=== PATIENT | female | born 1970 | race Caucasian/White ===

== ENCOUNTER 2025-08-10 11:01 | Emergency (ER) | payer OTHER ==
[~2025-08-10] VITALS: Ht 165.1 cm; Wt 105.4 kg
[~2025-08-10 11:01] MED LIST: LANS15CA37; TOPI50TA32
[2025-08-10 11:16] VITALS: PULSE 80; RESP 30; TEMP 97.6; O2SAT 100
--- NOTE | 2025-08-10 11:22 | ED.PDOC ---
History of Present Illness HPI Comments 55-year-old female presents to the ER with spouse and a prior medical history of seizures, hiatal hernia in the chief complaint of seizures. Spouse reports that the patient has been having more frequent seizures for the past week and a half with since Saturday of 07/25/2025. Spouse states that the patients seizure would usually last 10 minutes but has been recently been sec in today had three tonic- clonic seizures. Patient notes on having headache which is a 12/10 on the pain scale. Spouse notes that the patient has also been complaining of chest pain yesterday and assumes that it might be related to the recent seizures. Denies any other symptoms at this time. Denies chills, fever, N/V/D, SOB. No other associated symptoms, modifiers, recent injuries or sick contacts present at this time. Chief Complaint: Seizure Time Seen by MD: 11:15 Reviewed Notes: Nurses Notes, Medications, Allergies Allergies: Coded Allergies: Levetiracetam (Verified Allergy, Unknown, 08/10/25) Home Meds Reported Medications Lansoprazole (Prevacid) 15 Mg Cap 05/01/12 Topiramate (Topamax) 50 Mg Tab 05/01/12 Information Source: Patient, Spouse Mode of Arrival: Ambulatory Severity: Moderate Timing: Days Duration: Since onset, Days Prehospital treatment: None Past Medical History PAST MEDICAL HISTORY: Seizures Past Medical History (Other): Hiatal hernia Surgical History: Denies all surgeries Family History Family History: Reviewed,noncontributory to illness, Family hx of DM, Family hx of HTN Social History Smoker: Non-Smoker Alcohol: Occasionally Drugs: Marijuana Lives In: Home Constitutional: denies: chills, diaphoresis, fatigue, fever, malaise, sweats, weakness, others EENTM: denies: blurred vision, double vision, ear bleeding, ear discharge, ear drainage, ear pain, ear ringing, eye pain, eye redness, hearing loss, mouth pain, mouth swelling, nasal discharge, nose bleeding, nose congestion, nose pain, photophobia, tearing, throat pain, throat swelling, voice changes, others Respiratory: denies: cough, hemoptysis, orthopnea, SOB at rest, shortness of breath, SOB with excertion, stridor, wheezing, others Cardiovascular: reports: chest pain; denies: dizzy spells, diaphoresis, Dyspnea on exertion, edema, irregular heart beat, left arm pain, lightheadedness, palpitations, PND, syncope, others Gastrointestinal: denies: abdomen distended, abdominal pain, blood streaked bowels, constipated, diarrhea, dysphagia, difficulty swallowing, hematemesis, melena, nausea, poor appetite, poor fluid intake, rectal bleeding, rectal pain, vomiting, others Genitourinary: denies: abnormal vagina bleeding, burning, dyspareunia, dysuria, flank pain, frequency, hematuria, incontinence, pain, , vagina discharge, urgency, others Neurological: reports: headache, seizure; denies: dizziness, fainting, left feliberto ed numbness, left sided weakness, numbness, paresthesia, pre-existing deficit, right sided numbness, right sided weakness, speech problems, tingling, tremors, weakness, others Musculoskeletal: denies: back pain, gout, joint pain, joint swelling, muscle pain, muscle stiffness, neck pain, others Integumetry: denies: bruises, change in color, change in hair/nails, dryness, laceration, lesions, lumps, rash, wounds, others Allergic/Immunocompromised: denies: Difficulty Healing, Frequent Infections, Hives, Itching, others Hematologic/Lymphatic: denies: anemia, blood clots, easy bleeding, easy bruising, swollen glands, others Endocrine: denies: excessive hunger, excessive sweating, excessive thirst, excessive urination, flushing, intolerance to cold, intolerance to heat, unexplained weight gain, unexplained weight loss, others Psychiatric: denies: anxiety, bipolar disorder, depression, hopeless, panic disorder, schizophrenia, sleepless, suicidal, others All Other Systems: Reviewed and Negative Physical Exam General Appearance: Moderate Distress HEENT: Normal ENT Inspection, Pharynx Normal, TMs Normal Neck: Full Range of Motion, Non-Tender, Normal, Normal Inspection Respiratory: Chest Non-Tender, Lungs Clear, No Accessory Muscle Use, No Respiratory Distress, Normal Breath Sounds Cardiovascular: No Edema, No JVD, No Murmur, No Gallop, Normal Peripheral Pulses, Regular Rate/Rhythm Breast Exam: Deferred Gastrointestinal: No Organomegaly, Non Tender, No Pulsatile Mass, Normal Bowel Sounds, Soft Genitalia: Deferred Pelvic: Deferred Rectal: Deferred Extremities: No calf tenderness, Normal capillary refill, Normal inspection, N ormal range of motion, Non-tender, No pedal edema Musculoskeletal : Apperance: Normal 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 Was a procedure done?: No Differential Dx Considerations may include: Breakthrough seizure, syncope X-Ray, Labs, Meds, VS Vital Signs Date Time Temp Pulse Resp B/P (MAP) Pulse Ox O2 Delivery O2 Flow Rate FiO2 08/10/25 11:16 80 30 100 Room Air* 0 21 08/10/25 11:16 97.6 80 20 126/75 (92) 99 97.6 08/10/25 11:13 97.7 75 12 126/75 98 97.7 Lab Test 08/10/25 11:21 Range/Units White Blood Count 7.0 4.4-10.8 10^3/uL Red Blood Count 4.66 4.0-5.20 10^6/uL Hemoglobin 14.6 12.2-16.2 g/dL Hematocrit 42.6 36.0-46.0 % Mean Corpuscular Volume 91.5 80.0-100.0 fL Mean Corpuscular Hemoglobin 31.4 28.0-32.0 pg Mean Corpuscular Hemoglobin Concent 34.3 32.0-36.0 g/dL Red Cell Distribution Width 12.9 11.8-14.3 % Platelet Count 195 140-450 10^3/uL Mean Platelet Volume 10.0 6.9-10.8 fL Neutrophils (%) (Auto) 55.4 37.0-80.0 % Lymphocytes (%) (Auto) 37.3 10.0-50.0 % Monocytes (%) (Auto) 4.7 0.0-12.0 % Eosinophils (%) (Auto) 1.5 0.0-7.0 % Basophils (%) (Auto) 1.1 0.0-2.0 % Neutrophils # (Auto) 3.9 1.6-8.6 10 ^3/uL Lymphocytes # (Auto) 2.6 0.4-5.4 10 ^3/uL Monocytes # (Auto) 0.3 0-1.3 10 ^3/uL Eosinophils # (Auto) 0.1 0-0.8 10 ^3/uL Basophils # (Auto) 0.1 0-0.2 10 ^3/uL Nucleated Red Blood Cells 0.0 % Sodium Level 143 136-145 mmol/L Potassium Level 3.5 3.5-5.1 mmol/L Chloride Level 114 H 98-107 mmol/L Carbon Dioxide Level 20 20-31 mmol/L Anion Gap 9 5-15 Blood Urea Nitrogen 13 9-23 mg/dL Creatinine 0.93 0.550-1.02 mg/dL Glomerular Filtration Rate Calc 72 >90 mL/min BUN/Creatinine Ratio 14.0 10.0-20.0 Serum Glucose 99 74-106 mg/dL Calcium Level 9.6 8.7-10.4 mg/dL Current Medications Medications (Trade) Dose Ordered Sig/Tammy Route Start Time Stop Time Status Last Admin Sodium Chloride 1,000 ml @ 500 mls/hr Q2H ONCE IVB 08/10/25 11:15 08/10/25 13:14 08/10/25 11:32 Lorazepam (Ativan Inj) 1 mg ONCE ONCE IV 08/10/25 12:15 08/10/25 12:16 DC 08/10/25 12:11 IV Hep-Lock was established. The patient was given a normal saline bolus. The patient was given Ativan 1 mg IV push. The patient was given Ativan because she had another seizure here in the emergency department's The patient's CBC and chemistry panel are within normal limits. The CAT scan of the head is negative We called [facility] and they are going to transfer the patient. The authorization #[id number] We did speak with the family and they are in agreement with the management. Images Reviewed?: Images reviewed and evaluated by me Time of 1ST Reevaluation: 11:45 Reevaluation 1ST: Unchanged Patient Education/Counseling: Diagnosis, Treatment, Prognosis Family Education/Counseling: Diagnosis, Treatment, Prognosis SEPSIS Sepsis Screen Physician Orders Pulse Oximetry (08/10/25 11:13) Blood Pressure (08/10/25 11:13) Heplock Iv (08/10/25 11:13) Seizure Precautions (08/10/25 11:13) Sodium Chloride 0.9% (08/10/25 11:15) [place] (08/10/25 11:13) Electrocardigram (08/10/25 11:13) Head Without Contrast (08/10/25 11:13) Vital Signs Date Time Temp Pulse Resp B/P (MAP) Pulse Ox O2 Delivery O2 Flow Rate FiO2 08/10/25 11:16 80 30 100 Room Air* 0 21 08/10/25 11:16 97.6 80 20 126/75 (92) 99 97.6 08/10/25 11:13 97.7 75 12 126/75 98 97.7 Laboratory Tests Test 08/10/25 11:21 White Blood Count 7.0 10^3/uL (4.4-10.8) Medications Medications Dose Ordered Sig/Tammy Route Start Time Stop Time Status Last Admin Dose Admin Lorazepam 1 mg ONCE ONCE IV 08/10/25 12:15 08/10/25 12:16 DC 08/10/25 12:11 Sodium Chloride 1,000 ml @ 500 mls/hr Q2H ONCE IVB 08/10/25 11:15 08/10/25 13:14 08/10/25 11:32 Departure 1 Departure Time of Disposition: 12:48 Impression: Primary Impression: Breakthrough seizure Disposition: [facility] HOSPICE[facility]MEDICAL FACILITY Condition: Fair Critical Care Note Critical Care Time?: Yes (55 min-critical care time only) Stability Stability form required: Yes Stable for transfer: Intended for transfer (Health plan request transfer), To designated facility Heart Score Heart Score: Heart Score Response (Comments) Value History N/A 0 EKG N/A 0 Age N/A 0 Risk Factors N/A 0 Troponin N/A 0 Total 0 I personally scribed for MISA SCOTT MD ([email or web address]) on 08/10/25 at 11:22. Electronically submitted by Micky Vargas ([email or web address]). MISA SCOTT MD Aug 10, 2025 11:22
[2025-08-10] MEDS: SODIUM CHLORIDE 0.9% 1,000 ML IVB ONE (11:32)
[2025-08-10 11:36] LABS: Hematocrit 42.6 % (36.0-46.0); Hemoglobin 14.6 g/dL (12.2-16.2); Mean Corpuscular Hemoglobin 31.4 pg (28.0-32.0); Mean Corpuscular Volume 91.5 fL (80.0-100.0); Nucleated Red Blood Cells % 0.0 %
[2025-08-10 11:43] LABS: Potassium 3.5 mmol/L (3.5-5.1); Sodium 143 mmol/L (136-145)
[2025-08-10 11:44] LABS: Anion Gap 9 (5-15); Calcium 9.6 mg/dL (8.7-10.4)
[2025-08-10 11:48] LABS: Carbon Dioxide 20 mmol/L (20-31); Chloride 114 mmol/L (98-107)
[2025-08-10 11:49] LABS: BUN/Creatinine Ratio 14.0 (10.0-20.0); Blood Urea Nitrogen 13 mg/dL (9-23); Glucose 99 mg/dL (74-106)
[2025-08-10] MEDS: LORazepam 2MG/ML-1ML VIAL IV ONE (12:11)
[2025-08-10] MEDS: LORazepam 2MG/ML-1ML VIAL ONE (12:11)
--- NOTE | 2025-08-10 12:13 | DVH ---
EXAM: CT HEAD WITHOUT CONTRAST INDICATION: seizure TECHNIQUE: CT of the head without intravenous contrast. Radiation Dose : 1. Head: CT Dose: CTDI volume is 57.63 mGy. Dose-length product is 1135.76 mGy*cm The dose indicators for CT are the volume Computed Tomography (CT) Dose Index (CTDIvol) and the Dose Length Product (DLP), and are measured in units of mGy and mGy-cm, respectively. These indicators are not patient dose, but values generated from the CT scanner acquisition factors. The report includes radiation exposure data for exposures received during this examination. COMPARISON: None FINDINGS: There is no evidence of acute intracranial hemorrhage, extra-axial collection, mass effect, midline shift, herniation or hydrocephalus. The ventricles, sulci and cisterns are age appropriate. The hi-white differentiation is intact. The visualized paranasal sinuses and mastoid air cells are clear. The surrounding soft tissues and osseous structures are unremarkable. IMPRESSION: No acute intracranial abnormality. Radiation optimization: All CT scans at this facility use at least one of these dose optimization techniques: automated exposure control mA and/or kV adjustment per patient size (includes targeted exams where dose is matched to clinical indication) or iterative reconstruction.
[2025-08-10 14:58] VITALS: BP 101/55; PULSE 71; RESP 18; O2SAT 97
== END 2025-08-10 16:06 | disposition left against medical advice (07) ==
LOC: ER 11:01
DX: G40.909 Epilepsy, unspecified, not intractable, without status epilepticus (principal)
CPT/HCPCS: 36415; 70450; 80048; 85025; 96361; 96374; 99291; J2060; J7040